=== PATIENT | female | born 1980 | race Caucasian/White ===

== ENCOUNTER 2020-09-02 15:37 | Emergency (ER) | payer OTHER ==
[~2020-09-02] VITALS: Wt 63.5 kg
[2020-09-02] MEDS ORDERED: XANAX1 MG PO (17:13)
== END 2020-09-02 17:23 | disposition home or self-care (01) ==
LOC: ED 15:37
DX: F41.9 Anxiety disorder, unspecified (principal); Z88.6 Allergy status to analgesic agent